=== PATIENT | female | born 1985 | race African-American/Black ===

== ENCOUNTER 2016-07-23 08:17 | Emergency (ER) | payer OTHER ==
[2016-07-23 08:30] VITALS: BP 115/80; PULSE 64; TEMP 97.4; BMI 24.2
--- NOTE | 2016-07-23 08:52 | PDOC ---
History of Present Illness - General Chief Complaint: Ear Problem Stated Complaint: EAR INFECTION, FLUIDS Time Seen by Provider: 07/23/16 08:41 History Source: Patient Exam Limitations: No Limitations - History of Present Illness Initial Comments: 07/23/16 16:44 31 yr female c/o pain to both ears . Pt states she uses "a stick" to clean them and now has some pain and itching. Timing/Duration: unsure Past History - Past Medical History Allergies/Adverse Reactions: Allergies Allergy/AdvReac Type Severity Reaction Status Date / Time No Known Allergies Allergy Verified 07/23/16 08:27 Home Medications: Ambulatory Orders Vit No.124/Iron/FA [ Vitamin Tablet] 1 each PO DAILY 09/15/15 Ibuprofen [Motrin -] 600 mg PO TID #21 tablet 09/16/15 Acetic Acid/Hydrocortisone [Hydrocortison-Acetic Acid Soln] 10 ml AU QID #1 bottle 07/23/16 Asthma: No Cancer: No Cardiac Disorders: No Diabetes: No HTN: No Seizures: No Thyroid Disease: No - Psycho/Social/Smoking Cessation Hx Anxiety: No Suicidal Ideation: No Smoking History: Never smoked Have you smoked in the past 12 months: No Information on smoking cessation initiated: No Hx Alcohol Use: No Drug/Substance Use Hx: No Substance Use Type: None Hx Substance Use Treatment: No Review of Systems - Review of Systems Able to Perform ROS?: Yes Is the patient limited Nepali proficient: No Constitutional: No: Symptoms Reported HEENTM: Yes: See HPI Respiratory: No: Symptoms reported Cardiac (ROS): No: Symptoms Reported ABD/GI: No: Symptoms Reported : No: Symptoms Reported Musculoskeletal: No: Symptoms Reported Integumentary: No: Symptoms Reported *Physical Exam - Vital Signs Last Vital Signs Temp Pulse Resp BP Pulse Ox 97.4 F L 64 18 115/80 99 07/23/16 08:28 07/23/16 08:28 07/23/16 08:28 07/23/16 08:28 07/23/16 08:28 - Physical Exam General Appearance: Yes: Nourished, Appropriately Dressed HEENT: positive: EOMI, MITALI, TMs Normal, Pharynx Normal, TM Erythema (mild bilateraly, dry skin inner canals) Neck: positive: Supple Respiratory/Chest: positive: Lungs Clear, Normal Breath Sounds Cardiovascular: positive: Regular Rhythm, Regular Rate Musculoskeletal: positive: Normal Inspection Extremity: positive: Normal Inspection, Normal Range of Motion Integumentary: positive: Normal Color, Dry, Warm Medical Decision Making - Medical Decision Making 07/23/16 16:46 cc: itchy ears, painful neg cerumen impaction neg drainage will prescribe topical steroid drops for dermatitis inner canals *DC/Admit/Observation/Transfer Diagnosis at time of Disposition: Dermatitis - Discharge Dispostion Disposition: HOME Condition at time of disposition: Good - Prescriptions Prescriptions: Acetic Acid/Hydrocortisone [Hydrocortison-Acetic Acid Soln] 10 ml AU QID #1 bottle - Referrals Referrals: STAFF,NOT ON [Primary Care Provider] - Johan Reynaag MD [Staff Physician] - - Patient Instructions Additional Instructions: follow with the ENT doctor for follow up if not improving use the drops as prescribed do not put anything in your ears
== END 2016-07-23 08:56 | disposition home or self-care (01) ==
LOC: JERFT 08:17
DX: L30.9 Dermatitis, unspecified (principal)
CPT/HCPCS: 99281-25

== ENCOUNTER 2021-04-11 00:23 | Emergency (ER) | payer SELFPAY ==
[2021-04-11 01:45] VITALS: BP 119/75; PULSE 84; TEMP 98.1; BMI 22.2
[2021-04-11 02:34] LABS: URINE APPEARANCE CLEAR; URINE BILIRUBIN NEGATIVE (NEGATIVE); URINE COLOR YELLOW; URINE GLUCOSE (UA) NEGATIVE (NEGATIVE); URINE KETONE NEGATIVE (NEGATIVE); URINE LEUK ESTERASE NEGATIVE (NEGATIVE); URINE NITRITE NEGATIVE (NEGATIVE); URINE PROTEIN NEGATIVE (NEGATIVE); URINE UROBILINOGEN 0.2 mg/dL (0.2-1.0)
[2021-04-11 04:44] LABS: BASO % 0.7 % (0-2.0); EOS % 1.1 % (0-4.5); HEMATOCRIT 29.6 % (32.4-45.2); HEMOGLOBIN 10.6 GM/dL (10.7-15.3); LYMPH % 25.7 % (8-40); MCH 28.4 pg (25.7-33.7); MCHC 35.8 g/dl (32.0-36.0); MEAN CELL VOLUME 79.2 fl (80-96); MEAN PLT VOLUME 7.5 fl (7.5-11.1); MONO % 6.9 % (3.8-10.2); NEUT % 65.6 % (42.8-82.8); PLATELET COUNT 318 10^3/uL (134-434); RBC 3.73 M/mm3 (3.60-5.2); WHITE BLOOD COUNT 6.7 K/mm3 (4.0-10.0)
[2021-04-11 05:04] LABS: CALCIUM 8.5 mg/dL (8.5-10.1)
[2021-04-11 05:05] LABS: ALBUMIN 3.3 g/dl (3.4-5.0)
[2021-04-11 05:08] LABS: CREATININE 0.5 mg/dL (0.55-1.3)
[2021-04-11 05:09] LABS: BILIRUBIN,TOTAL 0.3 mg/dL (0.2-1); TOT PROT 6.3 g/dl (6.4-8.2)
== END 2021-04-11 07:15 | disposition left against medical advice (07) ==
LOC: JER 00:23
DX: M54.50 Low back pain, unspecified (principal); R10.2 Pelvic and perineal pain
CPT/HCPCS: 36415; 80053; 81003; 84702; 84703; 85025; 87086; 99284-25

== ENCOUNTER 2021-05-23 18:40 | Emergency (ER) | payer SELFPAY ==
[2021-05-23 18:56] VITALS: BP 121/78; PULSE 84; TEMP 98; BMI 23.4
== END 2021-05-23 21:20 | disposition home or self-care (01) ==
LOC: JERFT 18:40
DX: R60.0 Localized edema (principal)
CPT/HCPCS: 99281-25